=== PATIENT | male | born 1955 | race Caucasian/White ===

== ENCOUNTER 2023-09-04 07:53 | Outpatient (RCR) | payer MEDICARE, OTHER, SELFPAY | END 2023-09-04 23:59 | disposition home or self-care (01) | LOC: RPT 07:53 | PROVIDERS: ATTENDING PHYSICIAN Physician Assistant; FAMILY PHYSICIAN Family Medicine | DX: Z47.1 Aftercare following joint replacement surgery (principal); Z73.6 Limitation of activities due to disability; M62.81 Muscle weakness (generalized); M25.512 Pain in left shoulder; Z96.612 Presence of left artificial shoulder joint | CPT/HCPCS: 97110; 97112 ==

== ENCOUNTER 2023-10-22 19:33 | Inpatient (IN) | payer MEDICARE, OTHER, SELFPAY ==
[2023-10-22 15:10] VITALS: BP 136/107
[2023-10-22 15:30] LABS: % Basophils 0.3 % (0-2); % Eosinophils 1.7 % (0-6); % Immature Granulocytes 0.6 % (0-0.5); % Lymphocytes 12.3 % (20.5-51.1); % Monocytes 7.6 % (1.7-9.3); % Neutrophils 77.5 % (42.2-75.2); Absolute Eosinophils 0.2 10^3/uL (0-0.7); Absolute Immature Granulocytes 0.1 10^3/uL (0-0.05); Absolute Lymphocytes 1.5 10^3/uL (1.2-3.4); Absolute Monocytes 0.9 10^3/uL (0.1-0.6); Absolute Neutrophils 9.3 10^3/uL (1.4-6.5); Hematocrit 41.9 % (39.0-52.0); Hemoglobin 14.8 g/dL (13.0-18.0); Mean Corp Hgb Conc. 35.3 g/dL (33.0-37.0); Mean Corpuscular Hgb 29.5 pg (27.0-31.0); Mean Corpuscular Volume 83.5 fL (80.0-94.0); Mean Platelet Volume 8.9 fL (7.4-10.4); Nucleated Red Blood Cells % 0 % (-); Platelet Count 349 10^3/uL (130-400); Red Blood Cell Count 5.02 10^6/uL (4.70-6.10); Red Cell Dist. Width 12.6 % (11.5-14.5)
[2023-10-22 15:49] LABS: ALT (SGPT) 24 U/L (0-50); AST (SGOT) 22 U/L (17-59); Albumin 4.4 g/dl (3.5-5.0); Alkaline Phosphatase 77 U/L (38-126); Blood Urea Nitrogen 24 mg/dl (9-20); Calcium 9.6 mg/dl (8.4-10.2); Carbon Dioxide 25 mmol/L (22-30); Chloride 99 mmol/L (98-107); Glucose 142 mg/dl (70-99); Potassium 3.7 mmol/L (3.5-5.1); Sodium 136 mmol/L (135-145); Total Bilirubin 0.8 mg/dl (0.2-1.3); Total Protein 7.2 g/dl (6.3-8.2); eGFR > 60.00
--- NOTE | 2023-10-22 18:02 | ED.GENMED ---
History of Present Illness
General
Chief Complaint: Skin Problem
Time Seen by Provider: 10/22/23 16:59
Travel History
Have you had any contact with someone who has COVID-19?: No
Do you have any symptoms of coronavirus? Fever > 100 degrees, chills, cough, shortness of breath, sore throat, loss of taste or smell, muscle aches, or headache?: No
History of Present Illness
History of Present Illness:
68-year-old male presents to the emergency department for evaluation of right hand pain and swelling for the past 1 to 2 days, noted red streaking extending up the ulnar and radial forearm earlier today. Went to urgent care where he was advised to
come to the emergency department for IV antibiotics. An x-ray was obtained at urgent care that was reportedly unremarkable. Denies any fevers or chills. States he was doing yard work over the weekend but denies any trauma or puncture wounds to
the site. Does have a history of a left shoulder replacement and typically requires prophylactic antibiotics before any type of invasive procedures. He was given Augmentin by urgent care and took 1 dose thus far
Review of Systems
Review of Systems
Allergies reviewed?: Yes
All Other Systems: ROS reviewed and negative except as documented in HPI and ROS
Phy Exam
Physical Exam
Physical Exam:
GEN: Well appearing, NAD, WDWN
HEENT: Oral mucosa moist, no scleral icterus
Cardiac: Regular rate
Lung: No respiratory distress, no tachypnea
MSK: Erythema and induration of the right palm adjacent to the fifth MCP joint. There is a slight flexion deformity of the fifth finger with exquisite pain elicited with passive extension. Lymphangitis noted both radially and ulnarly extending to
the elbow. No palpable axillary adenopathy
Skin: Good color, no pallor or jaundice, no rashes
Neuro: AO x3, moves all extremities freely
Psych: Calm, cooperative
Course
Orders/Labs/Results
Orders:
Orders
10/22/23 Dinner
Regular
At Your Request: Full Participation
10/22/23 15:18
Complete Blood Count/With Diff Urgent
Comprehensive Metabolic Panel Urgent
10/22/23 18:00
Lactic Acid Urgent
Blood Culture Q30M
FATIMAH Source: Blood/Venous
Specimen Description:
10/22/23 18:14
Ampicillin/Sulbactam 3 G [Unasyn] 3 gm 0.9% Sodium Chloride 100 ml [Nss] 100 ml IV NOW
10/22/23 18:17
Admit/Transfer Patient As Directed
Co-Sign Provider:
Level of Care: Inpatient admission
Assign to:: Medical/Surgical
Physician / Group: leobardo
Diagnosis: tenosynovitis
Reason for Hospitalization: tenosynovitis
Expected length of stay greater than two midnights?: Yes
ELOS- Estimated Length of Stay in days: 2
I certify the patient meets the requirements for IP care: Yes
Code Status As Directed
Resuscitation Status: Full Code
10/22/23 18:28
Blood Culture Q30M
FATIMAH Source: Blood/Venous
Specimen Description:
10/22/23 20:26
Acetaminophen [Tylenol] 650 mg PO Q4HPRN PRN
HYDROmorphone [Dilaudid] 0.5 mg IV Q4HPRN PRN
10/22/23 20:26
ORTHOPEDIC CONSULT Routine
Consulting Provider: Ash Damon
Was physician already notified: Yes
Activity As Directed
Activity Level: As Tolerated
Pneumatic Compression Sleeves As Directed
Type: Knee high
Vital Signs As Directed
Frequency: Per unit guidelines
DX Deep Vein Thrombosis Video Routine
10/23/23 00:00
Piperacillin/Tazo 3.375 Gram [Zosyn] 3.375 gram in 50 ml IV Q6H
10/23/23 06:00
Complete Blood Count/With Diff IN AM
Comprehensive Metabolic Panel IN AM
10/23/23 08:00
Hydrochlorothiazide [Oretic] 25 mg PO DAILY
Lisinopril [Zestril] 10 mg PO DAILY
10/23/23 18:00
Atorvastatin [Lipitor] 20 mg PO QPM
Abnormal Lab Results
10/22/23
15:18
WBC 12.0 H 10^3/uL
(4.8-10.8)
Abs Immat Gran (auto) 0.1 H 10^3/uL
(0-0.05)
Absolute Neuts (auto) 9.3 H 10^3/uL
(1.4-6.5)
Absolute Monos (auto) 0.9 H 10^3/uL
(0.1-0.6)
Immature Gran % 0.6 H %
(0-0.5)
Neutrophils % 77.5 H %
(42.2-75.2)
Lymphocytes % 12.3 L %
(20.5-51.1)
BUN 24 H mg/dl
(9-20)
Glucose 142 H mg/dl
(70-99)
10/22/23 15:18
10/22/23 15:18
Vital Signs
Initial and Last Documented VS:
Initial Vital Signs
Temp Pulse Resp BP Pulse Ox
99.2 F 91 14 136/107 97
10/22/23 15:10 10/22/23 15:10 10/22/23 15:10 10/22/23 15:10 10/22/23 15:10
Last Documented Vital Signs
Temp Pulse Resp BP Pulse Ox
99.2 F 64 19 119/67 95
10/22/23 15:10 10/22/23 20:48 10/22/23 20:48 10/22/23 20:00 10/22/23 20:45
MDM/Problems Addressed
MDM/Problems Addressed:
Unclear cause to the patient's infection however given the pain with passive extension is certainly concerning for a pulm or/flexor tenosynovitis. Although the patient is clinically well, we discussed the case with orthopedics who recommended
admission for IV antibiotics given the seemingly insidious onset of the symptoms. Limited to the hospitalist service on IV Unasyn
*Critical Care Note
Total Time (30-74mins, 75-104mins- exclusive of procedures): Not Applicable
ED Attending Note
-
Portions of this chart may have been created with voice recognition software.� Occasional wrong word or��sound alike� substitutions may have occurred due to the inherent limitations of voice recognition software.
Discharge Plan
Departure
Patient Disposition: Admit
Date of Disposition: 10/22/23
Time of Disposition: 18:05
Admit to: Med/Surg
Presentation/result/management discussed w/ accepting MD/DO: Hospitalist
Discharge Problem:
Tenosynovitis of right hand, Lymphangitis
Interventions
Interventions:
*Risk Screen - Suicide Last Done: 10/22/23 15:08
*General Assessment Last Done: 10/22/23 18:11
*Neglect/Abuse Screening Last Done: 10/22/23 15:08
ED- Fall Risk Assessment Last Done: 10/22/23 18:11
*ED COVID-19 Vaccine History Last Done: 10/22/23 19:29
ED-Skin Assessment Last Done: 10/22/23 18:11
--- NOTE | 2023-10-22 18:22 | HPS.HSE ---
Family Physician
-
Family Physician: Simone Grover
Chief Complaint
-
hand pain
History of Present Illness
68-year-old male past medical history of aortic stenosis, hypertension, arthritis, hypercholesterolemia presenting to the emergency room with right hand pain and swelling for the past 1 to 2 days. Pain and swelling is located at the base of the
fifth finger. He has pain with extension of fifth digit. He noticed red streaking extending up the ulnar and radial forearm earlier today. Went to urgent care and was told to come to the emergency room for IV antibiotics. X-ray at urgent care
was reportedly unremarkable. He denies any fevers or chills. He was doing yard work over the past week d but denies any trauma or puncture wounds to the site. He was wearing gloves but was working with some dirty water.
Denies any smoking or alcohol use.
Medical History
Past Medical History
Past Medical History: Reports Other (aortic stenosis, hypertension, arthritis, hypercholesterolemia)
Past Surgical History: Reports None
Social History
Tobacco: Non-smoker
Alcohol: None
Drug: None
Family History
Family History: Not pertinent
Allergies / Home Medications
Allergies reflects when Allergies were last updated in [employer].
Home Medications with original date entered in [employer]
Allergy/Medication List:
Allergies
Allergy/AdvReac Type Severity Reaction Status Date / Time
No Known Allergies Allergy Unverified 10/22/23 18:13
Home Medications
aspirin 81 mg tablet,delayed release 81 mg PO DAILY PRN prior to travel 10/22/23
atorvastatin 20 mg tablet 20 mg PO QPM 10/22/23
hydrochlorothiazide 25 mg tablet 25 mg PO DAILY 10/22/23
lisinopril 10 mg tablet 10 mg PO DAILY 10/22/23
tadalafil 5 mg tablet 5 mg PO DAILY PRN ed 10/22/23
Review of Systems
-
History Source: Patient
A 12 point ROS was completed and negative except as noted: Yes
Constitutional: Reports No Symptoms
EENT: Reports No Symptoms
Respiratory: Reports No Symptoms
Cardiac: Reports No Symptoms
Abdomen/GI: Reports No Symptoms
: Reports No Symptoms
Musculoskeletal: Reports See HPI
Skin: Reports See HPI
Neurological: Reports No Symptoms
Endocrine: Reports No Symptoms
Hematologic/Lymphatic: Reports No Symptoms
Psych: Reports No Symptoms
Physical Exam
Vital Signs
Vital Signs
Temp Pulse Resp BP Pulse Ox
99.2 F 91 14 136/107 97
10/22/23 15:10 10/22/23 15:10 10/22/23 15:10 10/22/23 15:10 10/22/23 15:10
Physical Exam
General: Well Developed, Well Nourished and No Apparent Distress
HEENT: NormoCephalic, Moist mucous membranes and Atraumatic
Respiratory: Clear
Cardiac: S1/S2 and Regular Rhythm; No Murmur or Rub
GI: Soft, Non Tender, Non Distended and Normal Bowel Sounds; No Organomegaly
Rectal: Deferred by Provider
Musculoskeletal: No Clubbing, No Cyanosis and No Edema
Skin: Other (right MCP area redness, swelling and redness and swelling of 5th digit on right with radial and ulnar steaking ); No Rash
Neuro: Nonfocal/grossly intact
Laboratory Results
-
10/22/23 15:18
10/22/23 15:18
Laboratory Results
Total Bilirubin 0.8 mg/dl (0.2-1.3) 10/22/23 15:18
AST 22 U/L (17-59) 10/22/23 15:18
ALT 24 U/L (0-50) 10/22/23 15:18
Alkaline Phosphatase 77 U/L (38-126) 10/22/23 15:18
Data Reviewed
-
Lab Data: Labs Reviewed by me
Old Records: Reviewed
Impression/Plan
-
IMPRESSION:
PLAN:
# Tenosynovitis of right wrist likely traumatic from recent yard work
-check blood cultures
-Vancomycin and Zosyn
-Ortho consulted
-tylenol, dilaudid as needed for pain
Aortic stenosis
Essential hypertension
-Continue hydrochlorothiazide, lisinoprilng
Arthritis
Hypercholesterolemia
-Continue statin
Full code
DVT prophylaxis�SCDs
Regular diet
[2023-10-22] MEDS: UNASYN IV (18:25)
[2023-10-22 19:22] VITALS: BP 138/81
[2023-10-22 20:00] VITALS: BP 119/67
[2023-10-22] MEDS: VANCOCIN 540 MG IV (21:00)
--- NOTE | 2023-10-22 21:01 | PHA.VAN.IN ---
Assessment
- Assessment
Renal Function: Appears similar to baseline
Concomitant Antimicrobials: ZOSYN
- Previous Dosing Experience
Previous Regimen: NONE
AUC Dosing Plan
- Dosing Variables
Dosing Weight (kg): 95.3
Dosing CrCl (ml/min): 100
Vd coefficient (L/kg): 0.6
- Empiric Dosing
Initial / Loading Dose: 2GM
Maintenance Regimen: 1250MG IV Q12H
Estimated AUC (mcg*h/mL): 533
Estimated Peak (mcg*h/mL): 33.7
Estimated Trough (mcg/ml): 13.4
Estimated Half Life (H): 7.9
Pharmacokinetics Vancomycin I
- -
Patient Age: 68
Patient Sex: Male
Vancomycin Day #: 1
Indication: Skin And Soft Tissue (TENOSYNOVITIS [R] WRIST)
Requesting Provider: NICHOLE
Height / Weight:
Height 5 ft 10 in
Actual Weight 95.254 kg
- Vital Signs / Lab Results
Temp Pulse Resp BP Pulse Ox
99.2 F 64 19 119/67 95
10/22/23 15:10 10/22/23 20:48 10/22/23 20:48 10/22/23 20:00 10/22/23 20:45
Lab Results - Hematology
10/22/23
15:18
WBC 12.0 H
Lab Results - Chemistry
10/22/23
15:18
BUN 24 H
Creatinine 0.8
Albumin 4.4
10/22/23
18:00
Lactic Acid 1.0
[2023-10-22 22:00] VITALS: BP 118/72
[2023-10-22] MEDS: ZOSYN 50 IV (23:14)
[2023-10-23] VITALS (9 sets, daily range): BP systolic 101–138; BP diastolic 66–90; BMI 29.6
[2023-10-23] MEDS: ZOSYN 50 IV ×4 (05:02→23:34)
[2023-10-23] MEDS: VANCOCIN 275 MG IV ×2 (05:53→17:49)
[2023-10-23 07:03] LABS: % Basophils 0.4 % (0-2); % Eosinophils 4.6 % (0-6); % Immature Granulocytes 0.3 % (0-0.5); % Lymphocytes 15.3 % (20.5-51.1); % Monocytes 9.5 % (1.7-9.3); % Neutrophils 69.9 % (42.2-75.2); Absolute Eosinophils 0.3 10^3/uL (0-0.7); Absolute Monocytes 0.6 10^3/uL (0.1-0.6); Absolute Neutrophils 4.7 10^3/uL (1.4-6.5); Hematocrit 38.5 % (39.0-52.0); Hemoglobin 13.5 g/dL (13.0-18.0); Mean Corp Hgb Conc. 35.1 g/dL (33.0-37.0); Mean Corpuscular Hgb 29.3 pg (27.0-31.0); Mean Corpuscular Volume 83.5 fL (80.0-94.0); Mean Platelet Volume 9.2 fL (7.4-10.4); Nucleated Red Blood Cells % 0 % (-); Platelet Count 315 10^3/uL (130-400); Red Blood Cell Count 4.61 10^6/uL (4.70-6.10); Red Cell Dist. Width 12.8 % (11.5-14.5); White Blood Cell Count 6.7 10^3/uL (4.8-10.8)
--- NOTE | 2023-10-23 07:15 | W.PN.UPDATE ---
Update Note
Progress Note Update
Full orthopedic consult dictated:
Dx: Right hand tenosynovitis with lymphangitis
Plan: Patient being admitted to hospital for right hand tenosynovitis with lymphangitis. He was running low-grade fever and white count as of yesterday. X-rays negative for fracture or dislocation. He was admitted overnight and started on IV
antibiotics with observation. This morning he feels as though his hand is doing much better. The red streaking up his arm has resolved, swelling and redness in the hand improved. He is able to make a near complete composite fist without pain. I
suggest we add K-pad today and observe until tomorrow. Hopefully tomorrow he continues to do well and we will switch to p.o. antibiotics. He says that he has Augmentin at home.
[2023-10-23 07:36] LABS: ALT (SGPT) 20 U/L (0-50); AST (SGOT) 19 U/L (17-59); Albumin 3.6 g/dl (3.5-5.0); Alkaline Phosphatase 71 U/L (38-126); Blood Urea Nitrogen 23 mg/dl (9-20); Calcium 8.8 mg/dl (8.4-10.2); Carbon Dioxide 24 mmol/L (22-30); Chloride 100 mmol/L (98-107); Estimated Creatinine Clearance 102 ml/min; Glucose 95 mg/dl (70-99); Potassium 3.8 mmol/L (3.5-5.1); Sodium 136 mmol/L (135-145); Total Bilirubin 0.9 mg/dl (0.2-1.3); Total Protein 6.1 g/dl (6.3-8.2); eGFR > 60.00
--- NOTE | 2023-10-23 08:12 | PHA.VAN.FU ---
Vancomycin Assessment / Plan
- Assessment
Renal Function: Stable
In the past 24 hrs, patient has been: Afebrile
Concomitant Antimicrobials: Piperacillin/Tazobactam
- Monitoring Plan
No level(s) ordered at this time: Consider levels in next few days
- Follow Up
Pharmacy will continue to follow.
Vancomycin Follow UP
- -
Patient Age: 68
Patient Sex: Male
Vancomycin Day #: 2
Indication: Skin And Soft Tissue (TENOSYNOVITIS [R] WRIST)
Requesting Provider: NICHOLE
Height / Weight:
Height 5 ft 10 in
Actual Weight 95.254 kg
- Vital Signs / Lab Results
Temp Pulse Resp BP Pulse Ox
98.6 F 73 16 105/73 99
10/23/23 07:00 10/23/23 07:00 10/23/23 07:00 10/23/23 04:00 10/23/23 07:00
Lab Results - Hematology
10/22/23 10/23/23
15:18 06:01
WBC 12.0 H 6.7
Lab Results - Chemistry
10/22/23 10/23/23
15:18 06:01
BUN 24 H 23 H
Creatinine 0.8 0.8
Estimated Creat Clear 102
Albumin 4.4 3.6
10/22/23
18:00
Lactic Acid 1.0
[2023-10-23] MEDS: ORETIC 25 MG PO (08:55)
[2023-10-23] MEDS: ZESTRIL 10 MG PO (08:55)
--- NOTE | 2023-10-23 10:10 | W.PN.HOSP.TC ---
Today's Communication/Plan
-
Continue present course of vancomycin and Zosyn
Check MRSA screen
K-pad
Presumed discharge in a.m.
Assessment / Plan
Assessment / Plan
68-year-old male past medical history of aortic stenosis, hypertension, arthritis, hypercholesterolemia presenting to the emergency room with right hand pain and swelling for the past 1 to 2 days.� Pain and swelling is located at the base of the
fifth finger.� He has pain with extension of fifth digit.� He noticed red streaking extending up the ulnar and radial forearm earlier today.� Went to urgent care and was told to come to the emergency room for IV antibiotics. He had been on a course
of Augmentin prescribed by them but took 1 days worth only. X-ray at urgent care was reportedly unremarkable.� He denies any fevers or chills.� He was doing yard work over the past week d but denies any trauma or puncture wounds to the site.� He
was wearing gloves but was working with some dirty water. He does have a left shoulder replacement in relation to severe osteoarthritic changes in the past.
Denies any smoking or alcohol use.
# Tenosynovitis of right wrist likely traumatic from recent yard work
-check blood cultures/no growth yet
-Vancomycin and Zosyn
-Obtain MRSA screen for direction and delineation of antibiotic at discharge
-Ortho consulted/was seen and recommend 1 more day of IV antibiotics and aqua K-pad
-tylenol, dilaudid as needed for pain
Aortic stenosis
Essential hypertension
-Continue hydrochlorothiazide, lisinoprilng
Arthritis
Hypercholesterolemia
-Continue statin
Full code
DVT prophylaxis�SCDs
Regular di
Anticipated Discharge: Within 24 hours
Subjective/Interval History
-
Date of Service: October 23, 2023
Significant reduction in swelling and redness to the right hand with now able to make a fist
Objective Data
-
Labs:
Laboratory Results
10/23/23
06:01
WBC 6.7
Hgb 13.5
Hct 38.5 L
Plt Count 315
Sodium 136
Potassium 3.8
Chloride 100
Carbon Dioxide 24
BUN 23 H
Creatinine 0.8
Glucose 95
Calcium 8.8
Total Bilirubin 0.9
AST 19
ALT 20
Alkaline Phosphatase 71
Vital Signs:
Vital Signs
Temp Pulse Resp BP Pulse Ox
98.6 F 73 16 122/75 94
10/23/23 07:00 10/23/23 07:00 10/23/23 07:00 10/23/23 08:00 10/23/23 08:45
Review of Systems
-
History Source: Patient
All other systems: Not reviewed unless documented
Musculoskeletal: Reports Edema and Arthralgias
Skin: Reports Rash and Nail Changes
Physical Exam
-
General: Well Developed
HEENT: Normocephalic
Respiratory: Clear to Auscultation
Cardiac: Regular Rhythm
GI: Soft
Musculoskeletal: Edema, Right Upper Extrem (Swelling to the right hand and palmar aspect significant improved with now improved range of motion no wrist involvement)
Skin: Warm
Neuro: Awake
Psych: Calm
Data Reviewed
-
Total Time Spent with Patient (in minutes): 45
Labs: Labs Reviewed by me
--- NOTE | 2023-10-23 12:18 | PTCARENOTE ---
ED Nurse No Delay report tubed to [facility]
--- NOTE | 2023-10-23 14:22 | PTCARENOTE ---
Received pt from ER.Pt awake, alert and oriented x3. Pt c/o mild discomfort in right hand, improvement in being able to open and close hand. No reddness noted mild edema, Pt VSS 98% on RA. Pt oriented to room call marin within reach, plan of care
ongoing.
[2023-10-23] MEDS: LIPITOR 20 MG PO (17:33)
[2023-10-24] MEDS: ZOSYN 50 IV (05:16)
[2023-10-24] MEDS: VANCOCIN 275 MG IV (05:43)
[2023-10-24 07:30] VITALS: BP 119/70
[2023-10-24] MEDS: ZESTRIL 10 MG PO (08:00)
[2023-10-24] MEDS: ORETIC 25 MG PO (08:00)
--- NOTE | 2023-10-24 08:55 | W.PN.UPDATE ---
Update Note
Progress Note Update
Patient using his right hand to hold his cell phone this morning when I entered for rounds, which was obviously a great sign. He feels great. Signs of cellulitis have essentially resolved. He has full right wrist hand and finger range of motion.
No pain. Afeb. WBC has normalized. Appreciate Dr. Aleman. Would anticipate a discharge home today on p.o ABX. He does have Augmentin at home if that is deemed appropriate. Would be happy to follow up outpatient in 2 weeks, if he desires,
otherwise as needed.
--- NOTE | 2023-10-24 09:59 | W.DS.TRANS ---
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
-
Discharge Instructions:
Discharge Diagnosis/Procedures Acute tenosynovitis lymphangitis of the right
hand
Diet As tolerated
Activity As tolerated
Driving Restrictions As prior to admission
Instructions:
Stand-Alone Forms:
Changes to Home Medications: Yes
Discharge Medications:
DC Medications w/original date entered in [email or web address]
aspirin 81 mg tablet,delayed release 81 mg PO DAILY PRN prior to travel 10/22/23
atorvastatin 20 mg tablet 20 mg PO QPM 10/22/23
hydrochlorothiazide 25 mg tablet 25 mg PO DAILY 10/22/23
lisinopril 10 mg tablet 10 mg PO DAILY 10/22/23
tadalafil 5 mg tablet 5 mg PO DAILY PRN ed 10/22/23
amoxicillin 875 mg-potassium clavulanate 125 mg tablet 1 tab PO BID Fever/pain #20 tabs 10/24/23
Home Medication Changes
amoxicillin 875 mg-potassium clavulanate 125 mg tablet 1 tab PO BID Fever/pain #20 tabs 10/24/23 (finish the prescription you had only have to take for 7 days)
Pending Results: No
Total time spent discharging patient (in min): 38
--- NOTE | 2023-10-24 10:14 | CM ---
Alert awake oriented patient who lives with his Effie who lives in a 2 story home with 2 step to enter and 12 steps to bed and bathroom. He is independent in driving and in all activities of daily living.He was offered VN he declined need.His
will drive him home.No adaptive devices
No VN hx / No SNF history
Pharmacy [facility]
PCP DR Grover
PLAN Home Declined VN
[2023-10-24 11:40] LABS: Hepatitis C Antibody Negative (Negative)
--- NOTE | 2023-10-24 12:28 | W.DCSUMMARY ---
Discharge Summary
Discharge Data
Date of Admission: 10/22/23
Date of Discharge: 10/24/23
Total time spent discharging patient (in min): 34
-
Pending Results: No
Hospital Course
68-year-old male who was admitted with a presentation of a swollen right hand he cannot dorsiflex or make a fist with that inflammation redness and pain no instigating event other than overuse he had been running a low-grade fever and was noted to
have leukocytosis on presentation with x-rays negative for signs of fracture or dislocation at time of evaluation. He had undergone an outpatient course attempted with Augmentin but only took 1 dose prior to presentation. He had red streaking up
his arm and into his hand with the palmar aspect being more most prominent only involved with erythema and swelling. He was unable to initially close his hand or make a fist. He was admitted and placed on combination of vancomycin and Zosyn and by
the time seen by myself the patient had had significant improvement and was able to close his hand with diminished induration and swelling and pain. He was seen by the orthopedic service in consultation who agreed with the diagnosis of a right hand
tenosynovitis with lymphangitis etiology unclear although the patient has significant osteoarthritic changes in the past that required total shoulder replacement on the left. An aqua K-pad was ordered along with continuation IV course of
antibiotics overnight and now he is deemed stable for discharge to complete a course of outpatient therapy with Augmentin for the next 7 days which he already has is instructed to usage of ibuprofen as needed and Dr. Ordaz on the orthopedic service
did offer to see the patient in follow-up in 2 weeks which she may pursue.
Discharge Plan
-
Patient Disposition: Home (Routine Discharge)
Discharge Diagnosis/Procedures: Acute tenosynovitis lymphangitis of the right hand
Diet: As tolerated
Activity: As tolerated
Driving Restrictions: As prior to admission
Referrals:
Simone Grover MD [Family Provider] -
Prescriptions:
New
amoxicillin-pot clavulanate 875-125 mg tablet
1 tab PO BID Qty: 20 0RF
Continued
atorvastatin 20 mg tablet
20 mg PO QPM
aspirin 81 mg Tablet,Delayed Release (Dr/Ec)
81 mg PO DAILY PRN (Reason: prior to travel)
lisinopril 10 mg tablet
10 mg PO DAILY
hydrochlorothiazide 25 mg tablet
25 mg PO DAILY
tadalafil 5 mg tablet
5 mg PO DAILY PRN (Reason: ed)
Discharge Orders:
Discharge Patient (As Directed); Ordered 10/24/23
Ordered By: Contreras Aleman
Discharge Date and Time
Discharge Date/Time: 10/24/23 10:39
== END 2023-10-24 10:39 | disposition home or self-care (01) | DRG 558 ==
LOC: 4 EAST ACU 19:33
PROVIDERS: Physician Assistant; ADMITTING PHYSICIAN Hospitalist; ATTENDING PHYSICIAN Internal Medicine; CONSULT PHYSICIAN Orthopaedic Surgery Hand Surgery; EMERGENCY PHYSICIAN Emergency Medicine; FAMILY PHYSICIAN Family Medicine
DX: M65.9 Synovitis and tenosynovitis, unspecified (principal); I89.1 Lymphangitis; I35.0 Nonrheumatic aortic (valve) stenosis; I10 Essential (primary) hypertension; M19.90 Unspecified osteoarthritis, unspecified site; E78.00 Pure hypercholesterolemia, unspecified
CPT/HCPCS: 80053; 83605; 85025; 86803; 87040; 87070; 96365; 96367; 99284

== ENCOUNTER → 2024-04-07 07:54 | Outpatient (REF) | payer MEDICARE, OTHER, SELFPAY | LOC: HWRCS 07:54 | PROVIDERS: ATTENDING PHYSICIAN Internal Medicine Cardiovascular Disease; FAMILY PHYSICIAN Family Medicine | DX: I35.0 Nonrheumatic aortic (valve) stenosis (principal) | CPT/HCPCS: 93306 ==

== ENCOUNTER → 2024-10-28 08:08 | Outpatient (REF) | payer MEDICARE, OTHER, SELFPAY | LOC: HWRCS 08:08 | PROVIDERS: ATTENDING PHYSICIAN Internal Medicine Cardiovascular Disease; FAMILY PHYSICIAN Family Medicine | DX: I35.0 Nonrheumatic aortic (valve) stenosis (principal); Q23.1 Congenital insufficiency of aortic valve | CPT/HCPCS: 93306 ==

== ENCOUNTER → 2025-05-11 11:56 | Outpatient (REF) | payer MEDICARE, OTHER, SELFPAY ==
[2025-05-11 13:46] LABS: Blood Urea Nitrogen 25 mg/dl (9-20); Calcium 9.5 mg/dl (8.4-10.2); Carbon Dioxide 27 mmol/L (22-30); Chloride 98 mmol/L (98-107); Glucose 96 mg/dl (70-99); Potassium 4.2 mmol/L (3.5-5.1); Sodium 132 mmol/L (135-145); eGFR > 60.00
== END ==
LOC: REG 11:56
PROVIDERS: ATTENDING PHYSICIAN Internal Medicine Cardiovascular Disease; FAMILY PHYSICIAN Family Medicine
DX: I10 Essential (primary) hypertension (principal); R00.0 Tachycardia, unspecified
CPT/HCPCS: 36415; 80048

== ENCOUNTER → 2025-05-12 09:05 | Outpatient (REF) | payer MEDICARE, OTHER, SELFPAY | LOC: RCS 09:05 | PROVIDERS: ATTENDING PHYSICIAN Internal Medicine Cardiovascular Disease; FAMILY PHYSICIAN Family Medicine | DX: I10 Essential (primary) hypertension (principal); I35.0 Nonrheumatic aortic (valve) stenosis; Q23.1 Congenital insufficiency of aortic valve; E78.5 Hyperlipidemia, unspecified; Z82.49 Family history of ischemic heart disease and other diseases of the circulatory system; E78.41 Elevated Lipoprotein(a) | CPT/HCPCS: 74174; 75572; 93306; Q9967 ==

== ENCOUNTER → 2025-08-02 06:54 | Outpatient (REF) | payer MEDICARE, OTHER, SELFPAY | LOC: RAD 06:54 | PROVIDERS: ATTENDING PHYSICIAN Internal Medicine Cardiovascular Disease; FAMILY PHYSICIAN Family Medicine | DX: E27.9 Disorder of adrenal gland, unspecified (principal) | CPT/HCPCS: 74170; Q9967 ==